=== PATIENT | female | born 1950 | race Caucasian/White ===

== ENCOUNTER 2018-06-08 17:07 | Emergency (ER) | payer OTHER ==
--- NOTE | 2018-06-08 18:13 | EDPHY ---
H & P Stated Complaint: VOMIT/DIARRHEA SINCE THIS AM, ABD PAIN AND MANRIQUEZ Time Seen by Provider: 06/08/18 18:13 HPI/ROS: CHIEF COMPLAINT: Nausea, vomiting, diarrhea HISTORY OF PRESENT ILLNESS: This is a generally healthy 67-year-old female who who became ill in the early hours of the morning today. She has had persistent nausea, vomiting, diarrhea throughout the day. She reports at least 4 bouts of vomiting and 4 bouts of nonbloody diarrhea. She has not been able to retain any food or fluid today. She has had some chills and thinks that perhaps she had a fever. Last night she ate shrimp that had been purchased 4 days ago but she has no reason to believe that it had gone bad. No ill contacts. No recent travel. REVIEW OF SYSTEMS: A ten system review of systems was performed and is negative with the exception of the items mentioned in the HPI. Past medical history: 1. Hypothyroidism 2. Hyperlipidemia Past surgical history: Knee surgery Social history: She lives with her . She does not use tobacco products. 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 General Appearance: Alert. Vital signs reviewed. Blood pressure 151/112. Eyes: Pupils equal and round, no conjunctival injection, no discharge. Anicteric. ENT, Mouth: Mucous membranes are dry, no oropharyngeal erythema or edema. Neck: No lymphadenopathy, supple. Respiratory: Lungs are clear to auscultation; no wheezes, rales, or rhonchi. Cardiovascular: Regular rate and rhythm; no murmur, rub, or gallop. Gastrointestinal: Abdomen is soft and nontender, no masses or organomegaly, bowel sounds normal. Skin: Warm and dry, no rashes on exposed skin, normal color. Back: Nontender to palpation over the thoracolumbar spine. No CVAT. Extremities: No lower extremity edema, no calf tenderness or swelling. Neurological: Alert and oriented. Moving all four extremities easily and equally. Psychiatric: Normal affect. - Personal History Current Tetanus/Diphtheria Vaccine: Yes - Medical/Surgical History Hx Asthma: Yes Hx Chronic Respiratory Disease: No Hx Diabetes: No Hx Cardiac Disease: No Hx Renal Disease: No Hx Cirrhosis: No Hx Alcoholism: No Hx HIV/AIDS: No Hx Splenectomy or Spleen Trauma: No Other PMH: KNEE SURG - Social History Smoking Status: Never smoked Constitutional: Initial Vital Signs Temperature (C) 37.1 C 06/08/18 17:20 Heart Rate 97 06/08/18 17:20 Respiratory Rate 18 06/08/18 17:20 Blood Pressure 151/112 H 06/08/18 17:20 O2 Sat (%) 96 06/08/18 17:20 O2 Delivery Mode Room Air Allergies/Adverse Reactions: Penicillins Allergy (Verified 06/08/18 17:19) Home Medications: Medication Instructions Recorded SIMVASTATIN 06/08/18 Synthroid 06/08/18 Medical Decision Making ED Course/Re-evaluation: 1 L IV normal saline and Zofran 4 mg IV ordered shortly after her arrival. 1930: Reevaluated patient. She is feeling improved, but still nauseated. 1L IV NS and 4mg IV Zofran ordered. Patient is feeling improved on reassessment. Will attempt PO trial. Abdomen soft and nontender. Patient is tolerating PO fluids without issue. She feels ready for discharge home. She did report a mild headache that she thinks is due to the fact that she has had no caffeine today. Tylenol 650 mg p.o. Given. She will be given a prepack for Zofran along with standard gastroenteritis care and follow up instructions. Return precautions discussed. BP high while in ED. Patient aware, will FU with PCP. Differential Diagnosis: I considered a differential diagnosis that includes but is not limited to gastroenteritis including food poisoning, gastritis, pancreatitis, cholecystitis , and appendicitis. - Data Points Medications Given: Discontinued Medications Acetaminophen (Tylenol) 650 mg PO EDNOW ONE Stop: 06/08/18 21:07 Last Admin: 06/08/18 21:10 Dose: 650 mg Sodium Chloride (Ns) 1,000 mls @ 0 mls/hr IV ONCE ONE PRN Reason: Wide Open Stop: 06/08/18 18:19 Last Admin: 06/08/18 18:22 Dose: 1,000 mls Sodium Chloride (Ns) 1,000 mls @ 0 mls/hr IV EDNOW ONE; Wide Open PRN Reason: Protocol Stop: 06/08/18 19:32 Last Admin: 06/08/18 19:42 Dose: 1,000 mls Ondansetron HCl (Zofran) 4 mg IVP EDNOW ONE Stop: 06/08/18 18:19 Last Admin: 06/08/18 18:22 Dose: 4 mg Ondansetron HCl (Zofran) 4 mg IVP EDNOW ONE Stop: 06/08/18 19:32 Last Admin: 06/08/18 19:42 Dose: 4 mg Ondansetron HCl (Zofran Odt 4 Mg Prepack#2) 1 btl TAKEHOME EDNOW ONE Stop: 06/08/18 20:50 Last Admin: 06/08/18 21:10 Dose: 1 btl Departure - Departure Disposition: Home, Routine, Self-Care Clinical Impression: Acute gastroenteritis Condition: Good Instructions: Ondansetron (By mouth), Gastroenteritis (ED) Additional Instructions: 1. Take Zofran as prescribed as needed for nausea and vomiting. 2. Increase fluid intake as tolerated. 3. Follow up with your primary care provider for unimproved symptoms over the next 2-3 days. 4. Return to the ED for worsening of condition. Referrals: Aurelio Jonas MD [Primary Care Provider] - As per Instructions Physician Review and Approval Statement: 06/08/18 18:13 Portions of this note were transcribed by the medical transcription. I, Dr. Mohini Biswas, personally performed the history, physical exam, and medical decision- making; and confirmed the accuracy of the information in the transcribed note.
[2018-06-08] MEDS ORDERED: NS 1,000 ML IV ONE ×2 (18:18→19:31)
[2018-06-08] MEDS ORDERED: ONDANSETRON 4 MG/2 ML VIAL IVP ONE ×2 (18:18→19:31)
[2018-06-08] MEDS ORDERED: ONDANSETRON 4MG PREPACK#2 BTL TAKEHOME ONE (20:49)
[2018-06-08] MEDS ORDERED: ACETAMINOPHEN 325 MG TAB PO ONE (21:06)
[2018-06-08 21:16] VITALS: BP 153/85
== END 2018-06-08 21:16 | disposition home or self-care (01) ==
DX: K52.9 Noninfective gastroenteritis and colitis, unspecified (principal); E86.9 Volume depletion, unspecified
CPT/HCPCS: 96361; 96374; 96376; 99284; J2405